=== PATIENT | male | born 1950 | race Caucasian/White ===

== ENCOUNTER 2017-05-18 21:50 | Emergency (ER) | payer OTHER ==
[~2017-05-18] VITALS: Ht 182.9 cm; Wt 106.1 kg
[2017-05-18] MEDS ORDERED: ONDANSETRON HCL 4 MG ORAL DISINTEGRATING TAB PO ONE (22:15)
[2017-05-18] MEDS ORDERED: MORPHINE SULFATE 5 MG/ML VIAL IV ONE ×2 (22:15→23:00)
[2017-05-18 23:39] VITALS: BP 145/78
== END 2017-05-18 22:36 | disposition home or self-care (01) ==
LOC: FSED 21:50
DX: M54.5 Low back pain (principal); R10.9 Unspecified abdominal pain; N20.1 Calculus of ureter
CPT/HCPCS: 74176; 85025; 96374; 96375; 99283; J2270

== ENCOUNTER → 2023-05-23 | Outpatient (REF) | payer MEDICARE | LOC: DX 09:21 | PROVIDERS: ATTEND Family Medicine | DX: R13.10 Dysphagia, unspecified (principal) | CPT/HCPCS: 74230 ==